=== PATIENT | female | born 1980 | race African-American/Black ===

== ENCOUNTER 2019-12-01 18:38 | Inpatient (IN) | payer MEDICAID, OTHER ==
[~2019-12-01] VITALS: Ht 175.3 cm; Wt 83.5 kg
[2019-12-01] MEDS ORDERED: ONDANSETRON HCL 4MG/2ML INJ IV STA (19:01)
[2019-12-01] MEDS ORDERED: SODIUM CHLORIDE 0.9% 1,000 ML IV ONE (19:01)
[2019-12-01] MEDS ORDERED: VISCOUS LIDOCAINE 2% 15 ML UDC PO ONE (20:15)
[2019-12-01] MEDS ORDERED: MAGNESIUM/ALUMINUM HYDROXIDE/SIMETHICONE 30ML UDC PO ONE (20:15)
[2019-12-01] MEDS ORDERED: METOCLOPRAMIDE HCL 10MG/2ML VIAL IV ONE (20:15)
[2019-12-01] MEDS ORDERED: ONDANSETRON HCL 4MG/2ML INJ IV ONE (20:15)
[2019-12-01 20:28] LABS: CLARITY URINE CLOUDY (CLEAR); COLOR URINE DARK YELLOW (YELLOW); KETONES URINE 2+ (NEGATIVE); LEUKOCYTE ESTERASE URINE NEGATIVE (NEGATIVE); NITRITE URINE NEGATIVE (NEGATIVE); OCCULT BLOOD URINE NEGATIVE (NEGATIVE); PROTEIN URINE 2+ (NEGATIVE); UROBILINOGEN URINE 0.2 E.U./dL (0.2-1.0)
[2019-12-01 20:41] LABS: BASOPHILS % 0.6 % (0.0-2.0); CHLORIDE 108 mEq/L (98-107); HEMATOCRIT. 42.8 % (36.0-48.0); HEMOGLOBIN. 14.1 g/dL (12.0-16.0); LYMPHOCYTES % 11.2 % (20.0-50.0); MEAN CORPUSCULAR HEMOGLOBIN 27.6 pg (28.0-32.0); MEAN CORPUSCULAR VOLUME 84.2 fL (81.0-99.0); MONOCYTES % 6.8 % (2.0-8.0); NEUTROPHILS % 81.4 % (40.0-76.0); PLATELET 289 x1000/uL (130-400); RED BLOOD CELL COUNT 5.09 mill/uL (4.2-5.4); RED CELL DISTRIBUTION WIDTH 12.9 % (11.6-14.6)
[2019-12-01 20:52] LABS: HCG SCREEN NEGATIVE
[2019-12-01] MEDS ORDERED: POTASSIUM CHLORIDE INJ 40 MEQ in DEXT 5% WATER 250 ML IV ONE (21:15)
[2019-12-01] MEDS ORDERED: POTASSIUM CHLORIDE 20MEQ TABLET SR PO ONE ×2 (22:00)
[2019-12-01] MEDS ORDERED: CLONIDINE 0.2MG TABLET PO ONE (22:00)
[2019-12-01] MEDS ORDERED: DOCUSATE SODIUM 100MG CAPSULE PO PRN (22:45)
[2019-12-01] MEDS ORDERED: NA PHOS,M-B/NA PHOS,DI-BA ENEMA 118ML PR PRN (22:45)
[2019-12-01] MEDS ORDERED: ACETAMINOPHEN 325MG TABLET PO PRN (22:45)
[2019-12-01] MEDS ORDERED: ACETAMINOPHEN 650MG/20.3ML UDC GT PRN ×2 (22:45)
[2019-12-01] MEDS ORDERED: GUAIFENESIN 200MG/10ML SUGAR FREE UDC PO PRN (22:45)
[2019-12-01] MEDS ORDERED: ACETAMINOPHEN 650MG SUPP PR PRN ×2 (22:45)
[2019-12-01] MEDS ORDERED: HYDRALAZINE 20MG/ML VIAL IV PRN (23:15)
[2019-12-01] MEDS: ONDANSETRON HCL 4MG/2ML INJ IV PRN (23:59)
[2019-12-02 05:47] LABS: CHLORIDE 111 mEq/L (98-107)
[2019-12-02 05:49] LABS: BASOPHILS % 0.2 % (0.0-2.0); EOSINOPHILS % 0.1 % (0.0-5.0); HEMATOCRIT. 35.7 % (36.0-48.0); HEMOGLOBIN. 11.9 g/dL (12.0-16.0); MEAN CORPUSCULAR HEMOGLOBIN 27.8 pg (28.0-32.0); MEAN PLATELET VOLUME 9.6 fl (7.4-10.4); NEUTROPHILS % 70.7 % (40.0-76.0); PLATELET 255 x1000/uL (130-400); RED BLOOD CELL COUNT 4.29 mill/uL (4.2-5.4); RED CELL DISTRIBUTION WIDTH 12.9 % (11.6-14.6)
[2019-12-02 05:54] LABS: LDL CHOLESTEROL 99 mg/dL (5-100)
[2019-12-02 05:55] LABS: CREATINE KINASE 396 IU/L (26-192); HDL CHOLESTEROL 66 mg/dL (40-59)
[2019-12-02 05:58] LABS: CREATINE KINASE MB FRACTION 1.6 ng/mL (0.5-3.6)
[2019-12-02] MEDS: MAGNESIUM/ALUMINUM HYDROXIDE/SIMETHICONE 30ML UDC PO PRN ×2 (06:44→09:27)
[2019-12-02] MEDS: ONDANSETRON HCL 4MG/2ML INJ IV PRN ×4 (06:44→20:47)
[2019-12-02 08:05] VITALS: BP 170/93
[2019-12-02 09:20] LABS: *AMPHETAMINES SCREEN URINE NEGATIVE (NEGATIVE); *BARBITURATES SCREEN URINE NEGATIVE (NEGATIVE); *BENZODIAZEPINES SCREEN URINE NEGATIVE (NEGATIVE); *COCAINE SCREEN URINE NEGATIVE (NEGATIVE); METHADONE URINE SCREEN NEGATIVE (NEGATIVE); OPIATES URINE SCREEN NEGATIVE (NEGATIVE)
[2019-12-02 09:21] LABS: PHENCYCLIDINE URINE SCREEN NEGATIVE (NEGATIVE)
[2019-12-02] MEDS: AMLODIPINE 10MG TABLET PO SCH (09:27)
[2019-12-02] MEDS: ENOXAPARIN 40MG/0.4ML SYR SUBCUT SCH (09:28)
[2019-12-02 09:31] LABS: CANNABINOID URINE SCREEN PRESUMTIVE POSITIVE (NEGATIVE)
[2019-12-02] MEDS: CLONIDINE 0.1MG TABLET PO PRN (10:58)
[2019-12-02 12:00] VITALS: BP 154/88
[2019-12-02] MEDS: HYDRALAZINE 20MG/ML VIAL IV PRN (12:37)
[2019-12-02] MEDS: METOCLOPRAMIDE HCL 10MG/2ML VIAL IV SCH ×2 (12:43→17:16)
[2019-12-02] MEDS ORDERED: AMLO5TAB88 PO (14:32)
[2019-12-02] MEDS: METOPROLOL TARTRATE 25MG TABLET PO SCH ×2 (14:40→20:47)
[2019-12-02 15:47] LABS: CREATINE KINASE 624 IU/L (26-192)
[2019-12-02 16:00] VITALS: BP 148/83
[2019-12-02 16:11] VITALS: BP 169/97
[2019-12-02] MEDS ORDERED: METOCLOPRAMIDE HCL 10MG/2ML VIAL IV SCH (18:00)
[2019-12-02 20:00] VITALS: BP 151/77
[2019-12-03] VITALS: BP 167/107
[2019-12-03] MEDS: METOCLOPRAMIDE HCL 10MG/2ML VIAL IV SCH
[2019-12-03] MEDS: HYDROXYZINE 10 MG TABLET PO PRN ×2 (00:08→10:33)
[2019-12-03] MEDS: HYDRALAZINE 20MG/ML VIAL IV PRN (01:02)
[2019-12-03] MEDS: ONDANSETRON HCL 4MG/2ML INJ IV PRN ×5 (01:02→16:42)
[2019-12-03 04:00] VITALS: BP 179/111
[2019-12-03] MEDS: DIPHENHYDRAMINE 50MG/ML VIAL IV PRN ×3 (04:21→12:42)
[2019-12-03] MEDS: CLONIDINE 0.1MG TABLET PO PRN ×2 (04:44→12:41)
[2019-12-03 07:53] VITALS: BP 172/100
[2019-12-03] MEDS: METOPROLOL TARTRATE 25MG TABLET PO SCH (08:16)
[2019-12-03] MEDS: AMLODIPINE 10MG TABLET PO SCH (08:16)
[2019-12-03] MEDS: ENOXAPARIN 40MG/0.4ML SYR SUBCUT SCH (08:16)
[2019-12-03] MEDS ORDERED: DEXT 5%/0.2% NACL 1,000 ML IV SCH (10:30)
[2019-12-03] MEDS ORDERED: METO-539 MT (10:34)
[2019-12-03] MEDS ORDERED: AMLO10TA4 MT (10:34)
[2019-12-03] MEDS: MAGNESIUM/ALUMINUM HYDROXIDE/SIMETHICONE 30ML UDC PO PRN (10:43)
[2019-12-03 12:00] VITALS: BP 142/97
[2019-12-03 12:27] LABS: BASOPHILS % 0.3 % (0.0-2.0); EOSINOPHILS % 0.1 % (0.0-5.0); HEMATOCRIT. 39.9 % (36.0-48.0); HEMOGLOBIN. 13.3 g/dL (12.0-16.0); LYMPHOCYTES % 21.6 % (20.0-50.0); MEAN CORPUSCULAR HEMOGLOBIN 27.8 pg (28.0-32.0); MEAN CORPUSCULAR VOLUME 83.4 fL (81.0-99.0); MEAN PLATELET VOLUME 9.9 fl (7.4-10.4); MONOCYTES % 5.6 % (2.0-8.0); NEUTROPHILS % 72.4 % (40.0-76.0); PLATELET 281 x1000/uL (130-400); RED BLOOD CELL COUNT 4.79 mill/uL (4.2-5.4); RED CELL DISTRIBUTION WIDTH 12.6 % (11.6-14.6)
[2019-12-03 12:30] LABS: CHLORIDE 106 mEq/L (98-107)
[2019-12-03] MEDS ORDERED: POTASSIUM CHLORIDE 20MEQ TABLET SR PO SCH ×2 (13:00→16:00)
[2019-12-03] MEDS ORDERED: LORAZEPAM 0.5MG TABLET PO SCH (13:15)
[2019-12-03 15:31] VITALS: BP 145/75
[2019-12-03 16:00] VITALS: BP 145/85
[2019-12-03] MEDS ORDERED: METOPROLOL TARTRATE 50MG TABLET PO SCH (21:00)
[2019-12-03] MEDS ORDERED: FAMOTIDINE 20MG TABLET PO SCH (21:00)
== END 2019-12-03 17:02 | disposition home or self-care (01) | DRG 199 ==
LOC: ER 18:38 → 6WST 22:24 → ENRESERV 12-02 07:30
PROVIDERS: ADMIT Family Medicine; ATTEND Family Medicine
DX: I16.1 Hypertensive emergency (principal); E86.0 Dehydration; N39.0 Urinary tract infection, site not specified; E87.2 Acidosis; I10 Essential (primary) hypertension; E87.6 Hypokalemia; K21.9 Gastro-esophageal reflux disease without esophagitis; F17.200 Nicotine dependence, unspecified, uncomplicated; F41.9 Anxiety disorder, unspecified; Z98.891 History of uterine scar from previous surgery; Z79.899 Other long term (current) drug therapy; R11.2 Nausea with vomiting, unspecified; F12.99 Cannabis use, unspecified with unspecified cannabis-induced disorder
CPT/HCPCS: 36415; 71045; 74021; 80053; 80061; 80076; 80305; 81003; 82550; 82553; 83735; 83880; 84484; 84703; 85025; 93005; 99285; J0360; J1200; J1650; J2405; J2765; J3480; J7030; J7060